=== PATIENT | male | born 1955 | race Caucasian/White ===

== ENCOUNTER 2021-12-12 12:13 | Inpatient (IN) | payer MEDICARE ==
[~2021-12-12] VITALS: Ht 175.3 cm; Wt 103.7 kg
[2021-12-12 12:52] VITALS: BP 158/92
[2021-12-12] MEDS ORDERED: CACL 1GM SYG IVP ONE (12:57)
[2021-12-12] MEDS ORDERED: ALBUMIN (HUMAN) 25% 50 ML IV ONE (12:57)
[2021-12-12] MEDS ORDERED: MAGNESIUM SULFATE 1 GM/2 ML VIAL IM ONE (12:57)
[2021-12-12] MEDS ORDERED: SODIUM BICARB 8.4% 50ML SYRINGE IVP ONE (12:57)
[2021-12-12] MEDS ORDERED: NOREPINEPHRINE BITARTRATE 1 MG/1 ML ML IV ONE (12:57)
[2021-12-12] MEDS ORDERED: LIDOCAINE PF 100MG/5ML (2%) SYRINGE 5ML IVP ONE (12:57)
[2021-12-12] MEDS ORDERED: MANNITOL 25% 50ML VIAL IV ONE (12:57)
[2021-12-12] MEDS ORDERED: AMINOCAPROIC ACID 5,000MG VIAL IV ONE (12:57)
[2021-12-12] MEDS ORDERED: PHENYLEPHRINE HCL 10 MG/ML 1ML VIAL IV ONE (12:57)
[2021-12-12] MEDS ORDERED: HEPARIN 10,000 UNIT/10ML (1,000 UNIT/ML) VIAL IV ONE (12:57)
[2021-12-12] MEDS ORDERED: COLC0.6C3 PO (13:07)
[2021-12-12 14:19] LABS: ABG BASE EXCESS -0.9 mmol/L (-2.0-3.0); ABG HCO3 21.5 mmol/L (21.0-28.0); ABG OXYGEN SATURATION 97.5 % (95.0-99.0); ABG PCO2 31 mmHg (35-48)
[2021-12-12 16:10] VITALS: BP 153/83
[2021-12-12] MEDS ORDERED: ACETAMINOPHEN WITH CODEINE 1 TAB TAB PO PRN (17:00)
[2021-12-12] MEDS ORDERED: HEPARIN 5,000 UNIT VIAL SQ PRN ×2 (18:00→18:37)
[2021-12-12] MEDS ORDERED: HEPARIN 25,000 UNITS/250ML D5W 250 ML IV SCH (18:00)
[2021-12-12 18:11] LABS: BASOPHILS % (AUTO) 0.5 % (0.0-5.0); EOSINOPHILS % (AUTO) 0.4 % (0.0-8.0); HEMATOCRIT 47.5 % (42-54); LYMPHOCYTES % (AUTO) 17.4 % (21.0-51.0); MEAN CORPUSCULAR HGB CONC 35.4 g/dL (32.0-36.0); MEAN CORPUSCULAR VOLUME 87.6 fL (79-99); MONOCYTES % (AUTO) 7.4 % (3.0-13.0); PLATELET COUNT (AUTO) 242 K/uL (130-400); RED BLOOD CELL COUNT(AUTO) 5.42 MIL/uL (4.50-6.20); RED CELL DISTRIBUTION WIDTH 12.5 % (11.0-15.5); WHITE BLOOD COUNT (AUTO) 10.6 K/uL (4.8-10.8)
[2021-12-12] MEDS ORDERED: HEPARIN 5,000 UNIT VIAL IV ONE (19:30)
[2021-12-12] MEDS: HEPARIN 25,000 UNITS/250ML D5W 250 ML IV SCH (19:49)
[2021-12-12 20:18] VITALS: BP 144/89
[2021-12-12] MEDS ORDERED: KETOROLAC 15MG/ML VIAL (15MG/ML) IV ONE (20:30)
[2021-12-12] MEDS: ATORVASTATIN 40 MG TABLET PO SCH (20:34)
[2021-12-12] MEDS: METOPROLOL TARTRATE 25 MG TAB PO SCH (20:34)
[2021-12-12 23:21] VITALS: BP 157/89
[2021-12-13 02:05] LABS: BASOPHILS % (AUTO) 0.8 % (0.0-5.0); EOSINOPHILS % (AUTO) 1.2 % (0.0-8.0); HEMATOCRIT 48.2 % (42-54); LYMPHOCYTES % (AUTO) 23.4 % (21.0-51.0); MEAN CORPUSCULAR HEMOGLOBIN 30.2 pg (27.0-33.0); MEAN CORPUSCULAR HGB CONC 34.4 g/dL (32.0-36.0); MEAN CORPUSCULAR VOLUME 87.8 fL (79-99); MONOCYTES % (AUTO) 10.4 % (3.0-13.0); PLATELET COUNT (AUTO) 241 K/uL (130-400); RED BLOOD CELL COUNT(AUTO) 5.49 MIL/uL (4.50-6.20); RED CELL DISTRIBUTION WIDTH 12.5 % (11.0-15.5); WHITE BLOOD COUNT (AUTO) 12.3 K/uL (4.8-10.8)
[2021-12-13 02:19] LABS: INR 1.02 (0.85-1.15); PROTHROMBIN TIME 11.1 SEC (9.6-11.6)
[2021-12-13 02:20] LABS: PARTIAL THROMBOPLASTIN TIME 82.6 SEC (26.3-35.5)
[2021-12-13 02:26] LABS: HEMOGLOBIN A1C 5.7 % (4.0-6.0)
[2021-12-13 02:45] LABS: ALBUMIN 3.4 g/dL (3.5-5.0); POTASSIUM 3.6 mmol/L (3.5-5.1); TOTAL PROTEIN, SERUM 7.1 g/dL (6.0-8.3)
[2021-12-13 02:52] LABS: B-TYPE NATRIURETIC PEPTIDE 77 pg/mL (0-100)
[2021-12-13] MEDS: ACETAMINOPHEN WITH CODEINE 1 TAB TAB PO PRN ×2 (03:46→10:08)
[2021-12-13 03:53] VITALS: BP 152/89
[2021-12-13 07:19] VITALS: BP 132/96
[2021-12-13] MEDS: METOPROLOL TARTRATE 25 MG TAB PO SCH ×2 (08:11→20:41)
[2021-12-13] MEDS: ASPIRIN 81 MG EC TAB PO SCH (08:15)
[2021-12-13] MEDS: HEPARIN 25,000 UNITS/250ML D5W 250 ML IV SCH (10:01)
[2021-12-13 11:26] VITALS: BP 128/76
[2021-12-13 14:22] LABS: INR 0.99 (0.85-1.15); PROTHROMBIN TIME 10.8 SEC (9.6-11.6)
[2021-12-13 15:50] VITALS: BP 128/74
[2021-12-13 20:00] VITALS: BP 154/88
[2021-12-13] MEDS: ATORVASTATIN 40 MG TABLET PO SCH (20:41)
[2021-12-13] MEDS ORDERED: TAMSULOSIN HCL 0.4 MG CAP.ER.24H PO SCH (21:00)
[2021-12-13 23:58] VITALS: BP 132/93
[2021-12-14] VITALS (40 sets, daily range): BP systolic 113–186; BP diastolic 56–120
[2021-12-14] MEDS: ACETAMINOPHEN WITH CODEINE 1 TAB TAB PO PRN (01:32)
[2021-12-14] MEDS ORDERED: NITROGLYCERIN 50MG/D5W 250ML 1 BOT ONE (04:19)
[2021-12-14] MEDS ORDERED: NITROGLYCERIN 0.4 MG SL TAB SL ONE (04:20)
[2021-12-14] MEDS ORDERED: METOPROLOL TARTRATE 1 MG/ML 5ML VIAL IV ONE (04:30)
[2021-12-14] MEDS ORDERED: NITROGLYCERIN 0.4 MG SL TAB SL PRN (04:30)
[2021-12-14] MEDS ORDERED: NITROGLYCERIN 50MG/D5W 250ML 250 BOT IV PRN (05:00)
[2021-12-14] MEDS ORDERED: METOPROLOL TARTRATE 1 MG/ML 5ML VIAL IV PRN (05:00)
[2021-12-14] MEDS ORDERED: PHARMACY COMMUNICATION MISC SCH (05:30)
[2021-12-14 05:39] LABS: HEMATOCRIT 44.9 % (42-54); MEAN CORPUSCULAR HEMOGLOBIN 31.1 pg (27.0-33.0); MEAN CORPUSCULAR HGB CONC 34.7 g/dL (32.0-36.0); MEAN CORPUSCULAR VOLUME 89.4 fL (79-99); RED BLOOD CELL COUNT(AUTO) 5.02 MIL/uL (4.50-6.20); RED CELL DISTRIBUTION WIDTH 12.6 % (11.0-15.5); WHITE BLOOD COUNT (AUTO) 9.3 K/uL (4.8-10.8)
[2021-12-14 05:49] LABS: ALBUMIN 3.2 g/dL (3.5-5.0); CREATININE 1.2 mg/dL (0.5-1.5); MAGNESIUM 1.9 mg/dL (1.80-2.40); PHOSPHORUS 3.6 mg/dL (2.5-4.9); POTASSIUM 3.7 mmol/L (3.5-5.1); TOTAL PROTEIN, SERUM 6.8 g/dL (6.0-8.3)
[2021-12-14] MEDS ORDERED: NOREPINEPHRINE BITARTRATE 8 MG in 0.9% NACL 250ML 250 ML IV PRN (08:00)
[2021-12-14] MEDS ORDERED: EPINEPHRINE PF 1MG (1:1,000) 10 MG in 0.9% NACL 250ML 240 ML IV PRN ×2 (08:00→14:30)
[2021-12-14] MEDS ORDERED: AMINOCAPROIC ACID 5,000MG VIAL 15,000 MG in 0.9% NACL 500ML IV.SOLN 420 ML IV PRN (08:00)
[2021-12-14] MEDS: ASPIRIN 81 MG EC TAB PO SCH (08:12)
[2021-12-14] MEDS ORDERED: POTASSIUM CHLORIDE 20MEQ/100ML 100 ML IV PRN (08:30)
[2021-12-14] MEDS: METOPROLOL TARTRATE 25 MG TAB PO SCH (09:02)
[2021-12-14] MEDS ORDERED: PAPAVERINE HCL 30 MG/ML 2ML VIAL ONE (10:29)
[2021-12-14] MEDS: CEFAZOLIN SODIUM 1 GM VIAL ONE ×2 (11:00→12:00)
[2021-12-14] MEDS ORDERED: 0.9%NACL 1000ML 1,000 ML IV ONE (11:09)
[2021-12-14] MEDS ORDERED: EPINEPHRINE PF 1MG (1:1,000) 1 MG/ML AMP ONE (11:26)
[2021-12-14] MEDS ORDERED: NOREPINEPHRINE BITARTRATE 1 MG/1 ML ML IV ONE (11:26)
[2021-12-14] MEDS ORDERED: HEPARIN 10,000 UNIT/10ML (1,000 UNIT/ML) VIAL ONE (11:26)
[2021-12-14] MEDS ORDERED: ESMOLOL HCL 10 MG/ML 10 ML VIAL ONE (11:26)
[2021-12-14] MEDS ORDERED: PROTAMINE SULFATE 10 MG/ML 25ML VIAL IV ONE ×2 (11:26→14:12)
[2021-12-14] MEDS ORDERED: SODIUM BICARB 50MEQ 50ML VIAL 100 ML ONE ×2 (11:26→14:54)
[2021-12-14] MEDS ORDERED: PROPOFOL 10 MG/ML 20ML VIAL IV ONE (11:27)
[2021-12-14] MEDS ORDERED: MIDAZOLAM HCL 1 MG/ML 2ML VIAL ONE (11:27)
[2021-12-14] MEDS ORDERED: ROCURONIUM 10MG/1ML SYR 10 MG/ML ML ONE ×2 (11:27→15:00)
[2021-12-14] MEDS ORDERED: KETAMINE 50MG/ML SYRINGE 50 MG/ML DISP.SYRIN IV ONE (11:27)
[2021-12-14] MEDS ORDERED: FENTANYL CITRATE PF 50 MCG/1 ML 20ML VIAL IJ ONE (11:27)
[2021-12-14] MEDS ORDERED: CLINDAMYCIN IVPB 900MG/50ML 50 ML IV SCH (12:00)
[2021-12-14] MEDS ORDERED: DELNIDO FORMULA 2 BAG IV ONE (12:10)
[2021-12-14 12:46] LABS: ABG BASE EXCESS -4.3 mmol/L (-2.0-3.0); ABG HCO3 19.3 mmol/L (21.0-28.0); ABG OXYGEN SATURATION 99.4 % (95.0-99.0); ABG PCO2 32 mmHg (35-48)
[2021-12-14 13:28] LABS: ABG BASE EXCESS 0.7 mmol/L (-2.0-3.0); ABG HCO3 24.2 mmol/L (21.0-28.0); ABG OXYGEN SATURATION 98.5 % (95.0-99.0); ABG PCO2 35 mmHg (35-48)
[2021-12-14] MEDS ORDERED: DESMOPRESSIN 40MCG INJ IJ ONE (14:26)
[2021-12-14] MEDS ORDERED: 0.9% NACL 500ML IV.SOLN 500 ML IV SCH (14:30)
[2021-12-14] MEDS ORDERED: AMINOCAPROIC ACID 5,000MG VIAL 15,000 MG in 0.9% NACL 250ML 250 ML IV SCH (14:30)
[2021-12-14] MEDS ORDERED: ALBUMIN (HUMAN) 5% 250 ML IV PRN (14:30)
[2021-12-14] MEDS ORDERED: MORPHINE 2 MG SYG IV PRN (14:30)
[2021-12-14] MEDS ORDERED: 0.9%NACL 10ML VIAL IVP PRN (14:30)
[2021-12-14] MEDS ORDERED: NITROGLYCERIN 50MG/D5W 250ML 250 BOT IV SCH (14:30)
[2021-12-14] MEDS ORDERED: TRAMADOL HCL 50 MG TABLET PO PRN ×2 (14:30)
[2021-12-14] MEDS ORDERED: NOREPINEPHRIN 4MG/NS 250ML 250 ML IV PRN (14:30)
[2021-12-14] MEDS: 0.9%NACL 1000ML 1,000 ML IV SCH ×2 (14:30→20:51)
[2021-12-14] MEDS ORDERED: ACETAMINOPHEN 650 MG SUPPOSITORY RC PRN (14:30)
[2021-12-14] MEDS ORDERED: GLUCAGON 1MG KIT 1 MG ML IM PRN (14:30)
[2021-12-14] MEDS ORDERED: ONDANSETRON 4MG INJ IV PRN (14:30)
[2021-12-14] MEDS ORDERED: MORPHINE 4 MG SYG IV PRN (14:30)
[2021-12-14] MEDS ORDERED: PROPOFOL 1000 MG/100 ML 100 ML IV PRN (14:30)
[2021-12-14] MEDS ORDERED: DEXTROSE 50%-WATER 50 ML DISP.SYRIN IV PRN (14:30)
[2021-12-14] MEDS ORDERED: ACETAMINOPHEN 325 MG TAB PO PRN (14:30)
[2021-12-14] MEDS ORDERED: POTASSIUM PHOS 15 mMOL+NS250ML 250 ML IV PRN (14:30)
[2021-12-14 14:51] LABS: ABG BASE EXCESS -7.2 mmol/L (-2.0-3.0); ABG HCO3 17.7 mmol/L (21.0-28.0); ABG OXYGEN SATURATION 99.2 % (95.0-99.0); ABG PCO2 34 mmHg (35-48)
[2021-12-14 15:36] LABS: HEMATOCRIT 36.8 % (42-54); MEAN CORPUSCULAR HEMOGLOBIN 31.5 pg (27.0-33.0); MEAN CORPUSCULAR HGB CONC 35.6 g/dL (32.0-36.0); MEAN CORPUSCULAR VOLUME 88.5 fL (79-99); RED BLOOD CELL COUNT(AUTO) 4.16 MIL/uL (4.50-6.20); RED CELL DISTRIBUTION WIDTH 12.5 % (11.0-15.5); WHITE BLOOD COUNT (AUTO) 22.6 K/uL (4.8-10.8)
[2021-12-14 15:51] LABS: INR 1.11 (0.85-1.15)
[2021-12-14 15:52] LABS: CREATININE 1.2 mg/dL (0.5-1.5); MAGNESIUM 2.7 mg/dL (1.80-2.40); PHOSPHORUS 4.1 mg/dL (2.5-4.9); POTASSIUM 3.9 mmol/L (3.5-5.1)
[2021-12-14 15:52] LABS: ABG BASE EXCESS -1.2 mmol/L (-2.0-3.0); ABG PCO2 37 mmHg (35-48)
[2021-12-14 15:53] LABS: PARTIAL THROMBOPLASTIN TIME 23.4 SEC (26.3-35.5)
[2021-12-14] MEDS: INSULIN REGULAR, HUMAN 3ML 100 UNIT in 0.9%NACL 100ML 99 ML IV SCH ×4 (16:08→16:16)
[2021-12-14] MEDS: POTASSIUM CHLORIDE 20MEQ/100ML 100 ML IV PRN ×2 (16:16→21:54)
[2021-12-14] MEDS: MAGNESIUM 2GM PREMIX 50ML 50 ML IV PRN (16:17)
[2021-12-14 17:04] LABS: ABG HCO3 19.3 mmol/L (21.0-28.0); ABG OXYGEN SATURATION 97.6 % (95.0-99.0); ABG PCO2 34 mmHg (35-48)
[2021-12-14] MEDS: SODIUM BICARB 50MEQ 50ML VIAL IV PRN ×2 (17:23→17:24)
[2021-12-14 18:26] LABS: ABG BASE EXCESS 1.9 mmol/L (-2.0-3.0); ABG HCO3 26.5 mmol/L (21.0-28.0); ABG OXYGEN SATURATION 95.6 % (95.0-99.0); ABG PCO2 41 mmHg (35-48)
[2021-12-14] MEDS: CALCIUM GLUC 1GM 1 GM in 0.9%NACL 50ML 50 ML IV PRN ×2 (18:32→20:49)
[2021-12-14] MEDS ORDERED: MORPHINE 2 MG SYG IVP PRN (19:00)
[2021-12-14] MEDS ORDERED: HYDROCODONE/ACETAMINOPHEN 7.5/325 MG TAB PO PRN (19:30)
[2021-12-14] MEDS ORDERED: HYDROCODONE/ACETAMINOPHEN 5/325 MG TAB PO PRN (19:30)
[2021-12-14 20:41] LABS: ABG HCO3 28.3 mmol/L (21.0-28.0); ABG OXYGEN SATURATION 96.4 % (95.0-99.0); ABG PCO2 41 mmHg (35-48)
[2021-12-14] MEDS ORDERED: CLINDAMYCIN IVPB 900MG/50ML 50 ML IV ONE (21:15)
[2021-12-14] MEDS: FAMOTIDINE 20MG VIAL IV SCH (21:16)
[2021-12-14 21:48] LABS: ABG BASE EXCESS 3.6 mmol/L (-2.0-3.0); ABG HCO3 27.7 mmol/L (21.0-28.0); ABG OXYGEN SATURATION 96.8 % (95.0-99.0); ABG PCO2 40 mmHg (35-48)
[2021-12-14] MEDS: CLINDAMYCIN IVPB 900MG/50ML 50 ML IV SCH (22:09)
[2021-12-14 22:54] LABS: ABG BASE EXCESS 4.1 mmol/L (-2.0-3.0); ABG HCO3 28.7 mmol/L (21.0-28.0); ABG OXYGEN SATURATION 97.9 % (95.0-99.0); ABG PCO2 43 mmHg (35-48)
[2021-12-15] VITALS (61 sets, daily range): BP systolic 100–155; BP diastolic 48–92
[2021-12-15 00:27] LABS: ABG BASE EXCESS 4.3 mmol/L (-2.0-3.0); ABG HCO3 28.3 mmol/L (21.0-28.0); ABG PCO2 40 mmHg (35-48)
[2021-12-15 04:06] LABS: ABG BASE EXCESS 11.3 mmol/L (-2.0-3.0); ABG HCO3 36.3 mmol/L (21.0-28.0); ABG OXYGEN SATURATION 93.6 % (95.0-99.0); ABG PCO2 48 mmHg (35-48)
[2021-12-15 04:12] LABS: HEMATOCRIT 38.6 % (42-54); MEAN CORPUSCULAR HEMOGLOBIN 30.9 pg (27.0-33.0); MEAN CORPUSCULAR HGB CONC 34.5 g/dL (32.0-36.0); MEAN CORPUSCULAR VOLUME 89.8 fL (79-99); RED BLOOD CELL COUNT(AUTO) 4.3 MIL/uL (4.50-6.20); RED CELL DISTRIBUTION WIDTH 13.1 % (11.0-15.5); WHITE BLOOD COUNT (AUTO) 15.6 K/uL (4.8-10.8)
[2021-12-15 04:25] LABS: INR 1.01 (0.85-1.15)
[2021-12-15 04:26] LABS: PARTIAL THROMBOPLASTIN TIME 25.6 SEC (26.3-35.5)
[2021-12-15 04:27] LABS: CREATININE 1.2 mg/dL (0.5-1.5); MAGNESIUM 2.3 mg/dL (1.80-2.40); PHOSPHORUS 3.1 mg/dL (2.5-4.9); POTASSIUM 3.9 mmol/L (3.5-5.1)
[2021-12-15] MEDS: POTASSIUM CHLORIDE 20MEQ/100ML 100 ML IV PRN (04:33)
[2021-12-15] MEDS: CLINDAMYCIN IVPB 900MG/50ML 50 ML IV SCH ×2 (06:08→14:34)
[2021-12-15] MEDS: FAMOTIDINE 20MG VIAL IV SCH ×2 (08:14→20:08)
[2021-12-15] MEDS: KETOROLAC 15MG/ML VIAL (15MG/ML) IV PRN ×3 (09:25→21:09)
[2021-12-15] MEDS: FUROSEMIDE 40MG VIAL IV SCH ×2 (09:26→20:09)
[2021-12-15] MEDS: DOCUSATE SODIUM 100 MG CAP PO SCH ×2 (11:41→20:08)
[2021-12-15] MEDS: ATORVASTATIN 40 MG TABLET PO SCH (20:09)
[2021-12-15] MEDS ORDERED: AMIODARONE 900MG VIAL 360 MG in DEXTROSE 5%-WATER 200 ML IV SCH (22:00)
[2021-12-15] MEDS ORDERED: AMIODARONE 900MG VIAL 150 MG in DEXTROSE 5%-WATER 100 ML IV ONE (22:00)
[2021-12-16] VITALS (44 sets, daily range): BP systolic 101–158; BP diastolic 44–74
[2021-12-16] MEDS: AMIODARONE 900MG VIAL 540 MG in DEXTROSE 5%-WATER 300 ML IV SCH (04:22)
[2021-12-16] MEDS: KETOROLAC 15MG/ML VIAL (15MG/ML) IV PRN (04:52)
[2021-12-16 04:53] LABS: BASOPHILS % (AUTO) 0.4 % (0.0-5.0); EOSINOPHILS % (AUTO) 0.2 % (0.0-8.0); HEMATOCRIT 36.4 % (42-54); LYMPHOCYTES % (AUTO) 13.4 % (21.0-51.0); MEAN CORPUSCULAR HEMOGLOBIN 30.7 pg (27.0-33.0); MEAN CORPUSCULAR HGB CONC 33.2 g/dL (32.0-36.0); MEAN CORPUSCULAR VOLUME 92.4 fL (79-99); MONOCYTES % (AUTO) 10.7 % (3.0-13.0); NEUTROPHILS % (AUTO) 74.9 % (40.0-77.0); PLATELET COUNT (AUTO) 183 K/uL (130-400); RED BLOOD CELL COUNT(AUTO) 3.94 MIL/uL (4.50-6.20); RED CELL DISTRIBUTION WIDTH 13.2 % (11.0-15.5); WHITE BLOOD COUNT (AUTO) 16.7 K/uL (4.8-10.8)
[2021-12-16 05:22] LABS: CREATININE 1.3 mg/dL (0.5-1.5); POTASSIUM 3.4 mmol/L (3.5-5.1)
[2021-12-16] MEDS: POTASSIUM CHLORIDE 20MEQ/100ML 100 ML IV PRN (06:20)
[2021-12-16] MEDS: DOCUSATE SODIUM 100 MG CAP PO SCH ×2 (09:02→21:49)
[2021-12-16] MEDS: ASPIRIN 81 MG EC TAB PO SCH (09:02)
[2021-12-16] MEDS: FAMOTIDINE 20MG VIAL IV SCH ×2 (09:02→21:48)
[2021-12-16] MEDS: FUROSEMIDE 40MG VIAL IV SCH ×2 (09:03→23:37)
[2021-12-16] MEDS: METOPROLOL TARTRATE 25 MG TAB PO SCH ×2 (12:02→21:49)
[2021-12-16] MEDS ORDERED: TRAMADOL HCL 50 MG TABLET PO PRN (13:00)
[2021-12-16] MEDS: TRAMADOL HCL 50 MG TABLET PO PRN (13:14)
[2021-12-16] MEDS: ATORVASTATIN 40 MG TABLET PO SCH (21:49)
[2021-12-17] MEDS ORDERED: AMIODARONE 150MG VIAL ONE ×2 (00:10→00:22)
[2021-12-17] MEDS ORDERED: 0.9% NACL 250ML 250 ML ONE (00:10)
[2021-12-17] MEDS: AMIODARONE 900MG VIAL 540 MG in DEXTROSE 5%-WATER 300 ML IV SCH ×2 (00:41→17:14)
[2021-12-17 03:41] VITALS: BP 118/70
[2021-12-17 04:36] LABS: HEMATOCRIT 33.9 % (42-54); MEAN CORPUSCULAR HEMOGLOBIN 31.4 pg (27.0-33.0); MEAN CORPUSCULAR HGB CONC 34.5 g/dL (32.0-36.0); MEAN CORPUSCULAR VOLUME 90.9 fL (79-99); RED BLOOD CELL COUNT(AUTO) 3.73 MIL/uL (4.50-6.20); RED CELL DISTRIBUTION WIDTH 12.8 % (11.0-15.5); WHITE BLOOD COUNT (AUTO) 15.4 K/uL (4.8-10.8)
[2021-12-17 05:02] LABS: CREATININE 1.3 mg/dL (0.5-1.5); MAGNESIUM 1.7 mg/dL (1.80-2.40); POTASSIUM 3.3 mmol/L (3.5-5.1)
[2021-12-17] MEDS ORDERED: KCL 20 MEQ ERTAB PO ONE (05:56)
[2021-12-17] MEDS: MAGNESIUM 2GM PREMIX 50ML 50 ML IV PRN (05:57)
[2021-12-17] MEDS: TRAMADOL HCL 50 MG TABLET PO PRN (06:19)
[2021-12-17 08:00] VITALS: BP 124/76
[2021-12-17] MEDS ORDERED: POTASSIUM CHLORIDE 20MEQ/100ML 100 ML IV PRN (09:30)
[2021-12-17] MEDS ORDERED: POTASSIUM CHLORIDE 10% ELIXIR 20 MEQ/15 ML UDCUP PO PRN (09:30)
[2021-12-17] MEDS: ASPIRIN 81 MG EC TAB PO SCH (09:33)
[2021-12-17] MEDS: DOCUSATE SODIUM 100 MG CAP PO SCH ×2 (09:33→20:28)
[2021-12-17] MEDS: FAMOTIDINE 20MG VIAL IV SCH ×2 (09:33→20:27)
[2021-12-17] MEDS: METOPROLOL TARTRATE 25 MG TAB PO SCH ×2 (09:33→20:29)
[2021-12-17] MEDS: FUROSEMIDE 40MG VIAL IV SCH ×2 (09:34→20:28)
[2021-12-17] MEDS: ENOXAPARIN SODIUM 40 MG/0.4 ML SYRINGE SQ SCH (09:47)
[2021-12-17] MEDS ORDERED: POLYETHYLENE GLYCOL 3350 17 GM POWD.PACK PO PRN (10:30)
[2021-12-17] MEDS: HYDROCODONE/ACETAMINOPHEN 5/325 MG TAB PO PRN ×2 (10:50→22:08)
[2021-12-17] MEDS: KCL 20 MEQ ERTAB PO PRN ×3 (10:51→21:27)
[2021-12-17 11:45] VITALS: BP 120/71
[2021-12-17 16:00] VITALS: BP 128/72
[2021-12-17 20:05] VITALS: BP 121/73
[2021-12-17] MEDS: ATORVASTATIN 40 MG TABLET PO SCH (20:28)
[2021-12-17 23:36] VITALS: BP 111/69
[2021-12-18 03:10] VITALS: BP 117/69
[2021-12-18] MEDS: HYDROCODONE/ACETAMINOPHEN 5/325 MG TAB PO PRN ×2 (03:50→19:33)
[2021-12-18 03:51] LABS: HEMATOCRIT 36.9 % (42-54); MEAN CORPUSCULAR HEMOGLOBIN 30.3 pg (27.0-33.0); MEAN CORPUSCULAR HGB CONC 33.9 g/dL (32.0-36.0); MEAN CORPUSCULAR VOLUME 89.6 fL (79-99); RED BLOOD CELL COUNT(AUTO) 4.12 MIL/uL (4.50-6.20); RED CELL DISTRIBUTION WIDTH 12.5 % (11.0-15.5); WHITE BLOOD COUNT (AUTO) 14.6 K/uL (4.8-10.8)
[2021-12-18 04:07] LABS: CREATININE 1.3 mg/dL (0.5-1.5); POTASSIUM 3.6 mmol/L (3.5-5.1)
[2021-12-18 07:53] VITALS: BP 117/81
[2021-12-18] MEDS: DOCUSATE SODIUM 100 MG CAP PO SCH ×2 (08:52→20:04)
[2021-12-18] MEDS: FUROSEMIDE 40MG VIAL IV SCH ×2 (08:53→20:04)
[2021-12-18] MEDS: FAMOTIDINE 20MG VIAL IV SCH ×2 (08:53→20:04)
[2021-12-18] MEDS: ASPIRIN 81 MG EC TAB PO SCH (08:53)
[2021-12-18] MEDS: METOPROLOL TARTRATE 25 MG TAB PO SCH ×2 (08:53→20:03)
[2021-12-18] MEDS: ENOXAPARIN SODIUM 40 MG/0.4 ML SYRINGE SQ SCH (08:55)
[2021-12-18] MEDS ORDERED: AMIODARONE 200 MG TABLET PO SCH (09:00)
[2021-12-18] MEDS ORDERED: LACTULOSE 20 GM/30 ML UDCUP PO PRN ×2 (09:00)
[2021-12-18 11:25] VITALS: BP 116/69
[2021-12-18] MEDS: AMIODARONE 900MG VIAL 540 MG in DEXTROSE 5%-WATER 300 ML IV SCH (11:51)
[2021-12-18 16:22] VITALS: BP 129/72
[2021-12-18] MEDS: COLCHICINE 0.6 MG TABLET PO SCH (16:22)
[2021-12-18 19:06] VITALS: BP 117/65
[2021-12-18] MEDS: LIDOCAINE 5% TOPICAL PATCH TP SCH (20:02)
[2021-12-18] MEDS: AMIODARONE 200 MG TABLET PO SCH (20:03)
[2021-12-18] MEDS: ATORVASTATIN 40 MG TABLET PO SCH (20:04)
[2021-12-19 00:06] VITALS: BP 123/70
[2021-12-19 03:09] VITALS: BP 123/63
[2021-12-19 04:06] LABS: BASOPHILS % (AUTO) 0.5 % (0.0-5.0); EOSINOPHILS % (AUTO) 1.9 % (0.0-8.0); HEMATOCRIT 36.8 % (42-54); LYMPHOCYTES % (AUTO) 20.6 % (21.0-51.0); MEAN CORPUSCULAR HEMOGLOBIN 30.2 pg (27.0-33.0); MEAN CORPUSCULAR VOLUME 88.9 fL (79-99); MONOCYTES % (AUTO) 10.7 % (3.0-13.0); NEUTROPHILS % (AUTO) 65.6 % (40.0-77.0); PLATELET COUNT (AUTO) 273 K/uL (130-400); RED BLOOD CELL COUNT(AUTO) 4.14 MIL/uL (4.50-6.20); RED CELL DISTRIBUTION WIDTH 12.4 % (11.0-15.5); WHITE BLOOD COUNT (AUTO) 16.5 K/uL (4.8-10.8)
[2021-12-19 04:26] LABS: CREATININE 1.3 mg/dL (0.5-1.5); POTASSIUM 3.1 mmol/L (3.5-5.1)
[2021-12-19] MEDS: KCL 20 MEQ ERTAB PO PRN ×3 (05:40→10:45)
[2021-12-19] MEDS: AMIODARONE 900MG VIAL 540 MG in DEXTROSE 5%-WATER 300 ML IV SCH (06:28)
[2021-12-19 07:39] VITALS: BP 119/72
[2021-12-19 08:51] LABS: CREATININE 1.2 mg/dL (0.5-1.5); POTASSIUM 3.7 mmol/L (3.5-5.1)
[2021-12-19] MEDS ORDERED: COLCHICINE 0.6 MG TABLET PO SCH (09:00)
[2021-12-19] MEDS: FAMOTIDINE 20MG VIAL IV SCH ×2 (09:13→20:14)
[2021-12-19] MEDS: DOCUSATE SODIUM 100 MG CAP PO SCH ×3 (09:14→20:30)
[2021-12-19] MEDS: METOPROLOL TARTRATE 25 MG TAB PO SCH ×2 (09:14→20:14)
[2021-12-19] MEDS: FUROSEMIDE 40MG VIAL IV SCH ×2 (09:14→20:14)
[2021-12-19] MEDS: AMIODARONE 200 MG TABLET PO SCH ×2 (09:14→20:14)
[2021-12-19] MEDS: ASPIRIN 81 MG EC TAB PO SCH (09:14)
[2021-12-19] MEDS: COLCHICINE 0.6 MG TABLET PO SCH (09:14)
[2021-12-19] MEDS: ENOXAPARIN SODIUM 40 MG/0.4 ML SYRINGE SQ SCH (09:16)
[2021-12-19] MEDS: LIDOCAINE 5% TOPICAL PATCH TP SCH (09:16)
[2021-12-19 11:21] VITALS: BP 120/80
[2021-12-19] MEDS: KETOROLAC 15MG/ML VIAL (15MG/ML) IV PRN ×2 (12:15→20:14)
[2021-12-19 15:32] VITALS: BP 108/72
[2021-12-19 19:09] VITALS: BP 120/74
[2021-12-19] MEDS: ATORVASTATIN 40 MG TABLET PO SCH (20:14)
[2021-12-20 00:01] VITALS: BP 118/75
[2021-12-20 03:09] VITALS: BP 110/61
[2021-12-20 08:00] VITALS: BP 111/65
[2021-12-20 08:00] LABS: CREATININE 1.1 mg/dL (0.5-1.5); POTASSIUM 3.2 mmol/L (3.5-5.1)
[2021-12-20 08:05] LABS: BASOPHILS % (AUTO) 0.6 % (0.0-5.0); EOSINOPHILS % (AUTO) 5.4 % (0.0-8.0); HEMATOCRIT 32.5 % (42-54); LYMPHOCYTES % (AUTO) 19.5 % (21.0-51.0); MEAN CORPUSCULAR HEMOGLOBIN 30.7 pg (27.0-33.0); MEAN CORPUSCULAR HGB CONC 34.5 g/dL (32.0-36.0); MONOCYTES % (AUTO) 8.5 % (3.0-13.0); NEUTROPHILS % (AUTO) 65.5 % (40.0-77.0); PLATELET COUNT (AUTO) 282 K/uL (130-400); RED BLOOD CELL COUNT(AUTO) 3.65 MIL/uL (4.50-6.20); RED CELL DISTRIBUTION WIDTH 12.5 % (11.0-15.5); WHITE BLOOD COUNT (AUTO) 14.2 K/uL (4.8-10.8)
[2021-12-20] MEDS: LIDOCAINE 5% TOPICAL PATCH TP SCH (09:20)
[2021-12-20] MEDS: ENOXAPARIN SODIUM 40 MG/0.4 ML SYRINGE SQ SCH (09:21)
[2021-12-20] MEDS: ASPIRIN 81 MG EC TAB PO SCH (09:21)
[2021-12-20] MEDS: DOCUSATE SODIUM 100 MG CAP PO SCH ×2 (09:21→20:21)
[2021-12-20] MEDS: AMIODARONE 200 MG TABLET PO SCH ×2 (09:22→20:21)
[2021-12-20] MEDS: CLOPIDOGREL 75MG TAB PO SCH (09:22)
[2021-12-20] MEDS: COLCHICINE 0.6 MG TABLET PO SCH (09:22)
[2021-12-20] MEDS: METOPROLOL TARTRATE 25 MG TAB PO SCH ×2 (09:23→20:21)
[2021-12-20] MEDS: FUROSEMIDE 40MG VIAL IV SCH ×2 (09:24→20:22)
[2021-12-20] MEDS: FAMOTIDINE 20MG VIAL IV SCH ×2 (09:24→20:21)
[2021-12-20] MEDS: HYDROCODONE/ACETAMINOPHEN 5/325 MG TAB PO PRN (09:34)
[2021-12-20] MEDS: POTASSIUM CHLORIDE 20MEQ/100ML 100 ML IV PRN (11:24)
[2021-12-20] MEDS ORDERED: KCL 20 MEQ ERTAB PO SCH (11:30)
[2021-12-20 12:00] VITALS: BP 108/67
[2021-12-20] MEDS ORDERED: LIDOCAINE HCL-MPF 1% 2ML VIAL IV PRN (12:00)
[2021-12-20] MEDS ORDERED: LIDOCAINE HCL 1% 20 ML VIAL INJ SCH (12:00)
[2021-12-20] MEDS: KETOROLAC 15MG/ML VIAL (15MG/ML) IV SCH (13:33)
[2021-12-20] MEDS: KCL 20 MEQ ERTAB PO PRN (14:15)
[2021-12-20 16:02] VITALS: BP 123/74
[2021-12-20] MEDS ORDERED: METO25 PO (17:30)
[2021-12-20] MEDS ORDERED: ATOR40TA69 PO (17:30)
[2021-12-20] MEDS ORDERED: ASPI-1005 PO (17:30)
[2021-12-20] MEDS ORDERED: AMIO200T68 PO ×3 (17:30→17:51)
[2021-12-20] MEDS ORDERED: CLOP75TA14 PO (17:30)
[2021-12-20] MEDS ORDERED: FAMO-136 PO (17:51)
[2021-12-20] MEDS ORDERED: AMIODARONE 150MG VIAL 150 MG in DEXTROSE 5%-WATER 100 ML IV SCH (19:30)
[2021-12-20] MEDS ORDERED: PHARMACY COMMUNICATION MISC SCH (19:30)
[2021-12-20] MEDS ORDERED: AMIODARONE 360MG/200ML D5W(1MG/MIN) IV SCH ×2 (19:30)
[2021-12-20 20:00] VITALS: BP 113/55
[2021-12-20] MEDS: ATORVASTATIN 40 MG TABLET PO SCH (20:21)
[2021-12-21] VITALS: BP 119/62
[2021-12-21] MEDS ORDERED: AMIODARONE 540 MG/D5W 300ML (0.5MG/MIN) IV SCH ×2 (01:30)
[2021-12-21] MEDS: TRAMADOL HCL 50 MG TABLET PO PRN (03:15)
[2021-12-21 04:00] VITALS: BP 127/53
[2021-12-21 06:49] LABS: BASOPHILS % (AUTO) 0.5 % (0.0-5.0); EOSINOPHILS % (AUTO) 7.2 % (0.0-8.0); HEMATOCRIT 32.8 % (42-54); LYMPHOCYTES % (AUTO) 22.7 % (21.0-51.0); MEAN CORPUSCULAR HEMOGLOBIN 29.8 pg (27.0-33.0); MEAN CORPUSCULAR HGB CONC 33.2 g/dL (32.0-36.0); MEAN CORPUSCULAR VOLUME 89.6 fL (79-99); MONOCYTES % (AUTO) 9.1 % (3.0-13.0); NEUTROPHILS % (AUTO) 60.1 % (40.0-77.0); PLATELET COUNT (AUTO) 324 K/uL (130-400); RED BLOOD CELL COUNT(AUTO) 3.66 MIL/uL (4.50-6.20); RED CELL DISTRIBUTION WIDTH 12.6 % (11.0-15.5); WHITE BLOOD COUNT (AUTO) 12.1 K/uL (4.8-10.8)
[2021-12-21 07:01] LABS: CREATININE 1.1 mg/dL (0.5-1.5); POTASSIUM 3.7 mmol/L (3.5-5.1)
[2021-12-21] MEDS: KETOROLAC 15MG/ML VIAL (15MG/ML) IV SCH ×2 (07:45→20:22)
[2021-12-21 08:00] VITALS: BP 120/76
[2021-12-21] MEDS: LIDOCAINE 5% TOPICAL PATCH TP SCH (09:13)
[2021-12-21] MEDS: ENOXAPARIN SODIUM 40 MG/0.4 ML SYRINGE SQ SCH (09:14)
[2021-12-21] MEDS: METOPROLOL TARTRATE 25 MG TAB PO SCH ×2 (09:14→19:46)
[2021-12-21] MEDS: CLOPIDOGREL 75MG TAB PO SCH (09:14)
[2021-12-21] MEDS: DOCUSATE SODIUM 100 MG CAP PO SCH ×2 (09:14→19:46)
[2021-12-21] MEDS: FAMOTIDINE 20MG VIAL IV SCH ×2 (09:14→19:46)
[2021-12-21] MEDS: AMIODARONE 200 MG TABLET PO SCH ×2 (09:14→19:45)
[2021-12-21] MEDS: ASPIRIN 81 MG EC TAB PO SCH (09:14)
[2021-12-21] MEDS: COLCHICINE 0.6 MG TABLET PO SCH (09:14)
[2021-12-21] MEDS: FUROSEMIDE 40MG VIAL IV SCH ×2 (09:45→19:48)
[2021-12-21 12:00] VITALS: BP 126/64
[2021-12-21] MEDS ORDERED: KETOROLAC 15MG/ML VIAL (15MG/ML) IV SCH (14:00)
[2021-12-21 16:00] VITALS: BP 109/68
[2021-12-21] MEDS: ATORVASTATIN 40 MG TABLET PO SCH (19:45)
[2021-12-21] MEDS: APIXABAN 5 MG TABLET PO SCH (19:46)
[2021-12-21 20:46] VITALS: BP 106/67
[2021-12-22] VITALS (7 sets, daily range): BP systolic 110–128; BP diastolic 66–75
[2021-12-22] MEDS: KETOROLAC 15MG/ML VIAL (15MG/ML) IV SCH (04:10)
[2021-12-22] MEDS: LIDOCAINE 5% TOPICAL PATCH TP SCH (06:32)
[2021-12-22] MEDS: COLCHICINE 0.6 MG TABLET PO SCH (06:32)
[2021-12-22 07:02] LABS: BASOPHILS % (AUTO) 0.8 % (0.0-5.0); EOSINOPHILS % (AUTO) 6.4 % (0.0-8.0); HEMATOCRIT 32.7 % (42-54); LYMPHOCYTES % (AUTO) 25.6 % (21.0-51.0); MEAN CORPUSCULAR HEMOGLOBIN 30.4 pg (27.0-33.0); MEAN CORPUSCULAR HGB CONC 34.3 g/dL (32.0-36.0); MEAN CORPUSCULAR VOLUME 88.6 fL (79-99); NEUTROPHILS % (AUTO) 57.9 % (40.0-77.0); PLATELET COUNT (AUTO) 357 K/uL (130-400); RED BLOOD CELL COUNT(AUTO) 3.69 MIL/uL (4.50-6.20); RED CELL DISTRIBUTION WIDTH 12.4 % (11.0-15.5); WHITE BLOOD COUNT (AUTO) 11.9 K/uL (4.8-10.8)
[2021-12-22 07:15] LABS: CREATININE 1.3 mg/dL (0.5-1.5); MAGNESIUM 2.1 mg/dL (1.80-2.40); POTASSIUM 3.6 mmol/L (3.5-5.1)
[2021-12-22] MEDS: AMIODARONE 200 MG TABLET PO SCH (08:41)
[2021-12-22] MEDS: APIXABAN 5 MG TABLET PO SCH (08:41)
[2021-12-22] MEDS: FAMOTIDINE 20MG VIAL IV SCH (08:42)
[2021-12-22] MEDS: DOCUSATE SODIUM 100 MG CAP PO SCH (08:42)
[2021-12-22] MEDS: METOPROLOL TARTRATE 25 MG TAB PO SCH (08:42)
[2021-12-22] MEDS: FUROSEMIDE 40MG VIAL IV SCH (08:42)
[2021-12-22] MEDS: ASPIRIN 81 MG EC TAB PO SCH (08:42)
[2021-12-22] MEDS ORDERED: APIX5TAB PO (11:53)
[2021-12-22] MEDS ORDERED: AMIO200T68 PO ×3 (11:53→12:20)
[2021-12-22] MEDS ORDERED: AEC81 PO (11:53)
[2021-12-23] MEDS ORDERED: CLOPIDOGREL 75MG TAB PO SCH (09:00)
== END 2021-12-22 19:30 | DRG 235 ==
LOC: 2AH 12:30 → 2CH 12-14 04:40 → 2CV 12-14 12:18 → 2BH 12-14 19:00 → 2DH 12-16 13:42
PROVIDERS: ADMIT Internal Medicine; ATTEND Internal Medicine
PROC: 30233R1 Transfusion of Nonautologous Platelets into Peripheral Vein, Percutaneous Approach (ICD-10-PCS; 2021-12-14)
PROC: 5A1221Z Performance of Cardiac Output, Continuous (ICD-10-PCS; 2021-12-14)
PROC: 03HY32Z Insertion of Monitoring Device into Upper Artery, Percutaneous Approach (ICD-10-PCS; 2021-12-14)
PROC: 4A133B1 Monitoring of Arterial Pressure, Peripheral, Percutaneous Approach (ICD-10-PCS; 2021-12-14)
PROC: 4A133J1 Monitoring of Arterial Pulse, Peripheral, Percutaneous Approach (ICD-10-PCS; 2021-12-14)
PROC: 05HY33Z Insertion of Infusion Device into Upper Vein, Percutaneous Approach (ICD-10-PCS; 2021-12-14)
PROC: 02100Z9 Bypass Coronary Artery, One Artery from Left Internal Mammary, Open Approach (ICD-10-PCS; principal; 2021-12-14 11:28)
PROC: 021109W Bypass Coronary Artery, Two Arteries from Aorta with Autologous Venous Tissue, Open Approach (ICD-10-PCS; 2021-12-14 11:28)
PROC: 06BQ4ZZ Excision of Left Saphenous Vein, Percutaneous Endoscopic Approach (ICD-10-PCS; 2021-12-14 11:28)
DX: I25.110 Atherosclerotic heart disease of native coronary artery with unstable angina pectoris (principal); I21.4 Non-ST elevation (NSTEMI) myocardial infarction; J96.00 Acute respiratory failure, unspecified whether with hypoxia or hypercapnia; J98.11 Atelectasis; D62 Acute posthemorrhagic anemia; I97.190 Other postprocedural cardiac functional disturbances following cardiac surgery; E66.9 Obesity, unspecified; Z68.30 Body mass index [BMI] 30.0-30.9, adult; M10.9 Gout, unspecified; I48.0 Paroxysmal atrial fibrillation; E87.70 Fluid overload, unspecified; E11.9 Type 2 diabetes mellitus without complications; E78.5 Hyperlipidemia, unspecified; Z20.822 Contact with and (suspected) exposure to COVID-19; Z88.0 Allergy status to penicillin; Z79.899 Other long term (current) drug therapy; I10 Essential (primary) hypertension; G89.29 Other chronic pain
CPT/HCPCS: 36415; 36600; 71045; 80048; 80053; 80061; 82435; 82803; 82947; 82948; 83036; 83605; 83735; 83880; 84100; 84132; 84145; 84295; 84550; 85018; 85025; 85027; 85610; 85730; 86850; 86900; 86901; 86923; 87426; 93005; 93880; 93971; 94002; 94010; 94150; 97039; A7048; C1729; G0378; J0171; J0282; J0690; J1644; J1650; J1815; J1885; J1940; J2001; J2150; J2250; J2270; J2370; J2440; J2597; J2704; J2720; J3010; J3475; J3480; J3490; J7030; J7040; J7050; J7060; P9034; P9047